=== PATIENT | male | born 1935 | race Caucasian/White ===

== ENCOUNTER → 2017-05-04 | Outpatient (CLI) | payer MEDICARE, OTHER ==
--- NOTE | 2017-05-04 14:09 | RAD ---
CT chest without contrast 05/04/2017 Clinical indication: Pulmonary nodule. Comparison: CT chest November 02, 2016. Technique: Multiple CT images of the chest were obtained without intravenous contrast. Coronal and sagittal reformations were obtained. PQRS Compliance Statement: One or more of the following individualized dose reduction techniques were utilized for this examination: 1. Automated exposure control 2. Adjustment of the mA and/or kV according to patient size 3. Use of iterative reconstruction technique Findings: Chest: Heart size is normal without significant pericardial effusion. Three-vessel coronary artery calcifications. There is stable dilatation of the ascending thoracic aorta measuring 4.6 cm with mild scattered calcified atheromatous disease. No axillary, mediastinal or obvious left hilar lymphadenopathy, though evaluation is limited in the absence of intravenous contrast. There are mediastinal and right hilar calcified lymph nodes. There is mild centrilobular emphysema. There is abrupt cut off of the distal right mainstem bronchus with complete atelectasis of the right middle lobe which obscures evaluation of known renal middle lobe nodule. There is a stable calcified granuloma in the right lower lobe. There is a stable 5 mm noncalcified nodule in the left lower lobe (series 2/image 85). 7 mm noncalcified nodule in the left lower lobe series 2/image 60. There are left perifissural linear sub-5 mm thickening, likely benign. No pleural effusion or pneumothorax. There is a 5 mm noncalcified nodule in the superior segment of the left upper lobe (series 2/34). No destructive osseous lesion. Immediate images of the upper abdomen: Sub-5 mm superior pole right renal calculi. Impression: 1. Abrupt cut off of the distal right mainstem bronchus with development of complete atelectasis of the right middle lobe. Findings may be result of mucous plug, however malignancy cannot be excluded. 2. Previous identified right middle lobe nodule is obscured by atelectasis. 3. Stable left lung pulmonary nodules, which will need continued follow-up. 4. Pulmonary emphysema. 5. Stable dilatation of the ascending thoracic aorta measuring 4.6 cm. 6. Coronary artery calcifications. These results were discussed with Dr. Lilly Mckeon's Detacker, by telephone at 2:00 PM 05/04/2017.
== END | disposition home or self-care (01) ==
LOC: CT 08:57
PROVIDERS: ATTEND Internal Medicine Pulmonary Disease
DX: I25.10 Atherosclerotic heart disease of native coronary artery without angina pectoris (principal); J43.9 Emphysema, unspecified; J84.10 Pulmonary fibrosis, unspecified; R91.1 Solitary pulmonary nodule
CPT/HCPCS: 71250

== ENCOUNTER → 2017-12-03 | Outpatient (CLI) | payer MEDICARE, OTHER ==
--- NOTE | 2017-12-03 13:51 | RAD ---
CT chest without contrast History:ABNORMAL PRIOR CT CHEST IN 2017. PRIOR CT SENT WITH REPORT SCANNED IN. Technique: No intravenous contrast per request. Multiplanar reformatted images were obtained. Comparison: May 04, 2017 Exposure: One or more of the following individualized dose reduction techniques were utilized for this examination: 1. Automated exposure control 2. Adjustment of the mA and/or kV according to patient size 3. Use of iterative reconstruction technique. Findings: Vascular structures: Limited exam without contrast. Ascending aorta diameter 4.6 cm is stable. Lymph nodes:No significant enlargement Thyroid gland:Visualized aspect is unremarkable. Heart: Coronary artery calcifications. Pleural spaces: No significant effusion Lungs: * Emphysematous changes * Noncalcified 5 mm nodule in the left lung base on image 267, series 5, is stable. * Left lower lobe pulmonary nodule on series 5, image 182 measures about 6 mm diameter and has a flat morphology, no significant change. * Small nodule in the superior segment of the left lower lobe is unchanged measuring 5 mm previously series 5, image 107. * Collapse of the right middle lobe is unchanged. There is some narrowing or cutoff of the right middle lobe bronchus, similar to the prior study. Trachea and central airways: Patent Bones: Mild degenerative changes of the thoracic spine. No destructive lesion. Upper abdomen: Slices obtained through the upper most abdomen are limited by the noncontrast technique. Small nonobstructive calculus at the upper pole the right kidney. Gastric wall thickening is likely due to incomplete distention. Impression: 1. Small noncalcified pulmonary nodules are stable since prior exam. 2. Narrowing or blockage of the right middle lobe bronchus is again identified, with right middle lobe collapse. Endobronchial tumor is possible. 3. Ascending aortic dilatation is stable. 4. Nonobstructive right upper pole renal calculus. Similar to prior study. Electronically signed by: Jose Vergara MD (12/03/2017 1:48 PM) [id number]
== END | disposition home or self-care (01) ==
LOC: CT 11:06
PROVIDERS: ATTEND Internal Medicine Pulmonary Disease
DX: R91.8 Other nonspecific abnormal finding of lung field (principal); N20.0 Calculus of kidney
CPT/HCPCS: 71250

== ENCOUNTER → 2018-10-28 | Outpatient (CLI) | payer MEDICARE, OTHER ==
--- NOTE | 2018-10-28 16:10 | RAD ---
CT Abdomen and Pelvis without contrast History: Right flank pain off and on, hematuria Technique: Noncontrast CT imaging was performed of the abdomen and pelvis. Multiplanar images are reviewed. Exposure: One or more of the following individualized dose reduction techniques were utilized for this examination: 1. Automated exposure control 2. Adjustment of the mA and/or kV according to patient size 3. Use of iterative reconstruction technique. Comparison: April 08, 2016 CT abdomen pelvis exam and also chest CT December 03, 2017 Findings: Not fully included, there is again likely collapse of the right middle lobe. There is emphysema of the visualized lung bases. Small noncalcified 0.4 cm left lower lobe nodule axial image 14 is unchanged. Accurate evaluation of abdominal visceral organs is limited without intravenous contrast. There is no new obvious abnormality of the spleen, liver, or pancreas. Gallbladder is present without obvious intraluminal abnormality by CT. There is no adrenal nodularity. There are 3 remaining small nonobstructive right renal calculi, largest about 0.2 cm. Previously there were about 5 right renal calculi present. There are no left renal calculi. There is no hydronephrosis of either kidney. There is unchanged mild dilatation of the distal left ureter. No ureteral calculus is identified on either side. Accurate evaluation of bowel is limited without oral contrast. There is no significant free air, free fluid, bowel dilatation. There is mild sigmoid diverticulosis. Appendix is not confidently identified if still present. There is stable appearance of calcified right superior acetabular lesion. There is posterolateral fusion hardware L4-5. There is active disc disease L2-3. There is been posterior decompression L4-5 and L5-S1. There is likely at least mild spinal stenosis at L2-3 in part by bulge in combination with facet degenerative change. Impression: 1. There are a few small remaining right renal calculi, no hydronephrosis or ureteral calculus. 2. There is again right middle lobe collapse although not fully evaluated on this exam. There is emphysema. 3. There is stable appearance of calcified right superior acetabular lesion comparing with 2016 exam, likely chondroid lesion. Electronically signed by: Raghu Yates MD (10/28/2018 4:05 PM) [id number]
== END | disposition home or self-care (01) ==
LOC: CT 10:29
PROVIDERS: ATTEND Family Medicine
DX: N20.0 Calculus of kidney (principal); J43.9 Emphysema, unspecified; K57.30 Diverticulosis of large intestine without perforation or abscess without bleeding; R19.09 Other intra-abdominal and pelvic swelling, mass and lump
CPT/HCPCS: 74176

== ENCOUNTER → 2018-12-13 | Outpatient (CLI) | payer MEDICARE, OTHER ==
--- NOTE | 2018-12-13 15:05 | RAD ---
PQRS Compliance Statement: One or more of the following individualized dose reduction techniques were utilized for this examination: 1. Automated exposure control 2. Adjustment of the mA and/or kV according to patient size 3. Use of iterative reconstruction technique CT CHEST WO CONTRAST Clinical Indication: Lung Nodule, F/U Comparison: CT chest without contrast, December 03, 2017. TECHNIQUE: Helical CT imaging of the chest is performed without IV contrast. Findings: There is no mediastinal adenopathy. Limited evaluation of the kailash without IV contrast. Large calcified right hilar lymph node. Small calcified right hilar lymph nodes and soft tissue prominence. There is stable aneurysm of the ascending thoracic aorta, diameter is 4.5 cm. There is coronary artery disease. Cardiac size normal, no pericardial effusion. There is moderate centrilobular emphysema. Biapical scarring. There is unchanged collapse of the right middle lobe bronchus and collapse of the right middle lobe. Finding may be due to external compression from the right hilar lymph nodes as from sclerosing mediastinitis. An endobronchial mass cannot be excluded. There is scattered mucus plugging in the basilar right lower lobe bronchi. Previously seen nodule the right middle lobe cannot be evaluated due to collapse. Calcified granuloma in the anterior right lower lobe. Stable nodule in the lateral left lower lobe, image 431. Stable linear nodule in the posterior left lower lobe, image 292. Stable nodule in the severe segment of the left lower lobe, image 161. All 3 nodules are stable compared to 2017. Tiny right renal calculi. Kidneys incompletely imaged. No acute bone abnormality. IMPRESSION: 1. Unchanged collapse of the right middle lobe bronchus and right middle lobe. Considerations include sclerosing mediastinitis from granulomatous disease and calcified right hilar lymph nodes causing external compression of the bronchus versus endobronchial tumor. 2. There is new scattered mucus plugging in the basilar right lower lobe. 3. Stable aneurysm of the ascending thoracic aorta. 4. Moderate centrilobular emphysema. 5. There are 3 noncalcified pulmonary nodules that are stable greater than 2 years and can therefore be considered benign. Electronically signed by: Dalton Zarate MD (12/13/2018 3:02 PM) [id number]
== END | disposition home or self-care (01) ==
LOC: CT 08:40
PROVIDERS: ATTEND Internal Medicine Pulmonary Disease
DX: J43.2 Centrilobular emphysema (principal); T17.890A Other foreign object in other parts of respiratory tract causing asphyxiation, initial encounter; I25.10 Atherosclerotic heart disease of native coronary artery without angina pectoris; R91.8 Other nonspecific abnormal finding of lung field; I71.2 Thoracic aortic aneurysm, without rupture; X58.XXXA Exposure to other specified factors, initial encounter; Y93.89 Activity, other specified; Y92.89 Other specified places as the place of occurrence of the external cause; Y99.8 Other external cause status
CPT/HCPCS: 71250

== ENCOUNTER → 2019-08-16 | Outpatient (CLI) | payer MEDICARE, OTHER ==
--- NOTE | 2019-08-16 12:26 | RAD ---
CT of the chest without contrast 08/16/2019 INDICATION: Pneumonia, COPD. Cough. COMPARISON STUDY: CT of the chest without contrast December 13, 2018 TECHNIQUE: Multidetector CT imaging of the chest was performed without contrast. FINDINGS: Heart is normal in size. No pericardial effusion is identified. Coronary calcification noted. Limited noncontrast evaluation of vascular structures demonstrates grossly similar appearance of an ascending thoracic aortic aneurysm measuring 4.6 cm in diameter just above the sinotubular junction. The appearance is grossly unchanged. No pathologically enlarged mediastinal adenopathy is identified. There is no pneumothorax or pleural effusion. Emphysematous changes are seen throughout the lungs, similar to comparison study. There is bilateral apical pleural thickening and scarring. Central bronchiectasis is also seen. Stable appearance of a noncalcified nodule in the left upper lobe measuring 5 mm in diameter (axial image 118). Redemonstration of near-total collapse of the right middle lobe. A minimal portion of the right middle lobe appears to be aerated on today's exam. There is an increase in atelectasis or scarring within the adjacent right upper lobe. Calcified granuloma within the right lower lobe noted. Areas of mucous plugging involving the right lower lobe are again noted. Within the basilar most right lower lobe, there is a spiculated nodule measuring 13 mm in diameter. This is increased significantly in the interim since prior exam when it measured 6 mm in diameter. Findings are concerning for malignancy. Limited visualization of the upper abdomen demonstrates no acute changes. No acute osseous changes are identified in the interim. Impression: 1.Interval significant increase in spiculated nodule right lower lobe from 6 mm to 13 mm in the interim from December 13, 2018 to August 16, 2019. Findings concerning for malignancy. PET/CT or biopsy could be considered for further evaluation, both of which may be more challenging given nodule physician, just above the diaphragm. 2. Persistent right middle lobe volume loss with increased atelectasis or scarring within the adjacent right upper lobe 3. Grossly stable moderate to severe COPD related changes 4. 5 mm noncalcified nodule, left lower lobe, stable. 5. Ascending thoracic aortic aneurysm, stable CT DOSING PQRS STATEMENT: One or more of the following individualized dose reduction techniques were utilized for this examination: 1. Automated exposure control 2. Adjustment of the mA and/or kV according to patient size 3. Use of iterative reconstruction technique Electronically signed by: Esteban Rivas MD (08/16/2019 12:23 PM) [id number]
== END | disposition home or self-care (01) ==
LOC: CT 11:32
PROVIDERS: ATTEND Nurse Practitioner Adult Health
DX: J43.8 Other emphysema (principal); J47.0 Bronchiectasis with acute lower respiratory infection; J16.8 Pneumonia due to other specified infectious organisms; J84.10 Pulmonary fibrosis, unspecified; R91.1 Solitary pulmonary nodule; I25.10 Atherosclerotic heart disease of native coronary artery without angina pectoris; I71.2 Thoracic aortic aneurysm, without rupture; Z72.0 Tobacco use
CPT/HCPCS: 71250

== ENCOUNTER → 2019-11-02 | Outpatient (CLI) | payer MEDICARE, OTHER ==
[~2019-11-02] MED LIST: 0.9 % SODIUM CHLORIDE 10 ML VIAL ONE; ACET325T9 PO; CETI10TA24 PO; IOHEXOL 300 MG/ML 50 ML VIAL. ONE; LIDOCAINE 1% PF 30 ML VIAL. ONE; methylPREDNISolone ACETATE 80 MG/ML VIAL. ONE
[2019-11-02 12:29] VITALS: BP 156/83
== END | disposition home or self-care (01) ==
LOC: SURG 09:47
PROVIDERS: ATTEND Anesthesiology Pain Medicine
DX: M54.16 Radiculopathy, lumbar region (principal); K21.9 Gastro-esophageal reflux disease without esophagitis; F17.200 Nicotine dependence, unspecified, uncomplicated
CPT/HCPCS: 62323; J1040; J2001; Q9967

== ENCOUNTER → 2019-12-07 | Outpatient (CLI) | payer MEDICARE, OTHER ==
[~2019-12-07] MED LIST changes: -0.9 % SODIUM CHLORIDE 10 ML VIAL ONE; -IOHEXOL 300 MG/ML 50 ML VIAL. ONE; -LIDOCAINE 1% PF 30 ML VIAL. ONE; -methylPREDNISolone ACETATE 80 MG/ML VIAL. ONE
[2019-12-07 10:09] VITALS: BP 172/82
== END ==
LOC: SURG 09:40
PROVIDERS: ATTEND Anesthesiology Pain Medicine
DX: M54.16 Radiculopathy, lumbar region (principal); M96.1 Postlaminectomy syndrome, not elsewhere classified; M54.5 Low back pain
CPT/HCPCS: 99213; G0463

== ENCOUNTER → 2020-02-28 | Outpatient (CLI) | payer MEDICARE, OTHER ==
[2019-12-07 10:09] VITALS: BP 172/82
--- NOTE | 2020-02-28 11:18 | RAD ---
Examination: CT chest without contrast HISTORY: History of lung nodule follow-up COMPARISON: 08/16/2019 TECHNIQUE: Axial CT images of chest were performed without contrast. Coronal and sagittal deformities are performed Exposure: One or more of the following individualized dose reduction techniques were utilized for this examination: 1. Automated exposure control 2. Adjustment of the mA and/or kV according to patient size 3. Use of iterative reconstruction technique FINDINGS: The visualized thyroid gland grossly appears unremarkable. The central airways are patent. Heart size grossly appears unremarkable. The ascending aorta measures 4.5 cm in transverse dimension. Coronary artery calcifications. No radiologically significant mediastinal lymph nodes identified. Biapical lung thickening. Central bronchiectasis again identified. There is a 5 mm noncalcified nodule identified in the left lower lobe of the lung is unchanged. There is somewhat spiculated nodule identified in the right lower lobe of the lung measuring 1.6 cm, increased since prior exam measuring 1.3 cm. Volume loss and collapse of the right middle lobe of the lung is unchanged. The previously visualized airspace opacities identified in the right upper lobe of the lung apices are Moderate bilateral lung emphysematous changes. The visualized noncontrasted liver, spleen, adrenals grossly appears unremarkable Moderate degenerative changes thoracic spine. IMPRESSION: 1. Interval mild increase in right lower lobe lung nodule measuring 1.6 cm (prior 1.3 cm). Recommend PET/CT scan for further evaluation. 2. Unchanged collapse and volume loss of the right middle lobe of the lung. 3. Moderate emphysematous changes bilateral lungs. 4. Aneurysmal change of ascending aorta. Electronically signed by: Sid Levin MD (02/28/2020 11:15 AM) [place] [id number]
== END ==
LOC: CT 10:30
PROVIDERS: ATTEND Internal Medicine Pulmonary Disease
DX: R91.1 Solitary pulmonary nodule (principal); J43.9 Emphysema, unspecified; I71.2 Thoracic aortic aneurysm, without rupture
CPT/HCPCS: 71250

== ENCOUNTER → 2021-07-18 | Outpatient (CLI) | payer MEDICARE, OTHER ==
[2019-12-07 10:09] VITALS: BP 172/82
[~2021-07-18] MED LIST changes: -CETI10TA24 PO; +CETI10TA74 PO
--- NOTE | 2021-07-18 14:23 | RAD ---
CT RIGHT UPPER EXTREMITY WO History: Fall. Pain. Abnormal shoulder x-ray. Comparison: CT chest 02/28/2020. Technique: Noncontrast CT of the right shoulder. Findings: Osseous mineralization is normal. There is no fracture or dislocation identified. Mild degenerative c hanges of the acromioclavicular and glenohumeral joints. Small calcifications at the distal supraspin atus insertion versus subdeltoid bursa may represent calcific tendinopathy. The rotator cuff musculat ure is intact without significant atrophy. No significant shoulder effusion. Moderate centrilobular emphysematous change. Calcification of the aortic arch. Thyroid gland is unrem arkable. Degenerative changes of the lower cervical spine greatest at C5-C6. Impression: 1. Degenerative changes without acute osseous abnormality of the right shoulder. ------ Exposure: One or more of the following individualized dose reduction techniques were utilized for thi s examination: 1. Automated exposure control 2. Adjustment of the mA and/or kV according to patient size 3. Use of iterative reconstruction technique. Electronically signed by: Carlos Lloyd MD (07/18/2021 2:21 PM) [id number]
== END ==
LOC: RAD 13:44
PROVIDERS: ATTEND Family Medicine
DX: M19.011 Primary osteoarthritis, right shoulder (principal)
CPT/HCPCS: 73200